=== PATIENT | male | born 1995 | race Caucasian/White ===

== ENCOUNTER → 2018-02-08 | Outpatient (CLI) | payer OTHER | END | disposition home or self-care (01) | LOC: CFH 14:43 | PROVIDERS: ATTEND Orthopaedic Surgery | DX: S83.281A Other tear of lateral meniscus, current injury, right knee, initial encounter (principal); S83.104A Unspecified dislocation of right knee, initial encounter; S80.01XA Contusion of right knee, initial encounter; M25.461 Effusion, right knee; X58.XXXA Exposure to other specified factors, initial encounter; Y93.89 Activity, other specified; Y92.89 Other specified places as the place of occurrence of the external cause; Y99.8 Other external cause status ==

== ENCOUNTER 2018-06-10 14:01 | Inpatient (IN) | payer OTHER ==
[~2018-06-10] VITALS: Ht 185.4 cm; Wt 110.1 kg
[2018-06-10 14:37] LABS: BASOPHILS # (AUTO) 0.02 x10^3/uL (0-0.1); BASOPHILS % (AUTO) 0 % (0-1); EOSINOPHILS # (AUTO) 0.04 x10^3/uL (0-0.4); EOSINOPHILS % (AUTO) 0 % (1-7); LYMPHOCYTES # (AUTO) 1.44 x10^3/uL (1-3.4); LYMPHOCYTES % (AUTO) 9 % (22-44); MD NO; MEAN CORPUSCULAR HGB CONC 34.3 g/dL (33.2-36.2); MEAN CORPUSCULAR VOLUME 87.6 fL (81-97); MEAN PLATELET VOLUME 7.9 fL (7.4-10.4); MONOCYTES # (AUTO) 1.44 x10^3/uL (0.2-0.8); MONOCYTES % (AUTO) 9 % (2-9); NEUTROPHILS # (AUTO) 13.82 x10^3/uL (1.8-6.8); NEUTROPHILS % (AUTO) 83 % (42-75); PLATELET COUNT 206 x10^3/uL (130-400); RED BLOOD COUNT 4.89 x10^6/uL (4.38-5.82); RED CELL DISTRIBUTION WIDTH 12.3 % (9.4-14.8)
--- NOTE | 2018-06-10 14:42 | NUR ---
PT ON HEART MONITOR, BP CUFF, PULSE OX. VSS/UPDATED IN COMPUTER. PT DENIES PAIN OR SOB AT THIS TIME. IV PLACED FOR CTA, 2ND BC DRAWN WITH START. LABS DRAWN AND BC X 1 BY STORE PRODUCT DEMONSTRATOR. CALL LIGHT WITHIN REACH.
[2018-06-10 14:47] LABS: ALBUMIN 4.2 g/dL (3.4-5.0); ANION GAP 7 mmol/L (5-15); CALCIUM 9.4 mg/dL (8.5-10.1); CHLORIDE 106 mmol/L (98-107); CREATININE 1.06 mg/dL (0.7-1.3)
[2018-06-10] MEDS ORDERED: SODIUM CHLORIDE FLUSH 10ML SYR IVF ONE (15:00)
[2018-06-10 15:20] LABS: INTERNATIONAL NORMALIZED RATIO 1.15 (0.93-1.1)
--- NOTE | 2018-06-10 15:35 | NUR ---
ALL LAB RESULTS BACK, PT AWAITING CTA.
[2018-06-10] MEDS ORDERED: CEFEPIME 2 GM in DEXTROSE 5% 100 ML IV ONE (16:00)
[2018-06-10] MEDS ORDERED: VANCOMYCIN PER PHARMACY MC ONE (16:00)
[2018-06-10] MEDS ORDERED: VANCOMYCIN 2,000 MG in SODIUM CHLORIDE 0.9% 500 ML IV ONE (16:00)
--- NOTE | 2018-06-10 16:18 | NUR ---
AFTER CONFIRMING PATIENT HAD BLOOD CULTURES DRAWN. MANAGER TRANSITION STARTED CEFEPIME 2GM WELL LITER BOLUS, VITAL UPDATED (REMAINS TACHYCARDIC & W/ TEMP OF 100. REPORTS HE HAD 1000MG OF TYLENOL AT 1230P. VANCOMYCIN AT BEDSIDE. LISA LR UPDATED
[2018-06-10] MEDS ORDERED: SODIUM CHLORIDE 0.9% 1,000ML IVBOLUS ONE (17:00)
--- NOTE | 2018-06-10 17:04 | NUR ---
REPORT TO LATRELL MORALES READY FOR TRANSPORT.
[2018-06-10 17:18] VITALS: BP 138/89
[2018-06-10] MEDS ORDERED: morphine SULFATE 10 MG/ML, 1ML IVPush PRN (18:30)
[2018-06-10] MEDS ORDERED: DOCUSATE 100 MG CAPSULE PO PRN (18:30)
[2018-06-10] MEDS ORDERED: HYDROcodone/APAP 5/325 TABLET PO PRN (18:30)
[2018-06-10] MEDS ORDERED: POLYETHYLENE GLYCOL 17 GM PACKET PO PRN (18:30)
[2018-06-10] MEDS ORDERED: hydrALAzine 20 MG/ML, 1ML IVPush PRN (18:30)
[2018-06-10] MEDS ORDERED: BISACODYL 10 MG SUPP PR PRN (18:30)
[2018-06-10] MEDS ORDERED: VANCOMYCIN PER PHARMACY MC PRN (18:30)
[2018-06-10] MEDS ORDERED: ONDANSETRON 2MG/ML, 2ML IVPush PRN (18:30)
[2018-06-10] MEDS ORDERED: PROMETHAZINE 25 MG/ML, 1ML IM PRN (18:30)
[2018-06-10] MEDS ORDERED: ONDANSETRON ODT 4 MG PO PRN (18:30)
[2018-06-10] MEDS: SODIUM CHLORIDE 0.9% 1,000 ML IV SCH (18:38)
[2018-06-10 19:17] LABS: FREE T4 (FREE THYROXINE) 1.2 ng/dL (0.76-1.46); THYROID STIMULATING HORMONE 1.06 mIU/L (0.358-3.740)
[2018-06-10 19:23] LABS: HEMOGLOBIN A1C 5.2 % (4.2-6.3)
[2018-06-10] MEDS ORDERED: PHARMACOKINETIC CONSULTATION MC ONE (20:00)
[2018-06-10] MEDS ORDERED: PHARMACOKINETIC MONITORING MC PRN (20:00)
[2018-06-10] MEDS: ENOXAPARIN 40 MG/0.4 ML SQ SCH (20:08)
[2018-06-10 20:17] VITALS: BP 122/55
[2018-06-10] MEDS: PIPERACILLIN/TAZO/PMX 3.375GM 50 ML IV SCH (21:23)
[2018-06-11 03:01] VITALS: BP 99/66
[2018-06-11] MEDS: PIPERACILLIN/TAZO/PMX 3.375GM 50 ML IV SCH ×4 (03:13→23:32)
[2018-06-11] MEDS: SODIUM CHLORIDE 0.9% 1,000 ML IV SCH (04:54)
[2018-06-11] MEDS ORDERED: VANCOMYCIN 2,000 MG in SODIUM CHLORIDE 0.9% 500 ML IV SCH (05:00)
[2018-06-11 06:47] LABS: CHOL/HDL RATIO 2.8; CHOLESTEROL, TOTAL 86 mg/dL (140-239); CREATININE 1.17 mg/dL (0.7-1.3); HDL CHOL % 36 % (26-37); HDL CHOLESTEROL (DIRECT) 31 mg/dL (40-60); LDL CHOLESTEROL,CALCULATED 43 mg/dL (54-169); LDL/HDL RATIO 1.4 (0.5-3.0); TRIGLYCERIDES 60 mg/dL (50-200); VLDL CHOLESTEROL 12 mg/dL (0-25)
[2018-06-11 06:50] LABS: BASOPHILS # (AUTO) 0.01 x10^3/uL (0-0.1); BASOPHILS % (AUTO) 0 % (0-1); EOSINOPHILS # (AUTO) 0.05 x10^3/uL (0-0.4); EOSINOPHILS % (AUTO) 1 % (1-7); LYMPHOCYTES # (AUTO) 1.38 x10^3/uL (1-3.4); LYMPHOCYTES % (AUTO) 12 % (22-44); MD NO; MEAN CORPUSCULAR HEMOGLOBIN 29.8 pg (27.5-34.5); MEAN CORPUSCULAR HGB CONC 34.1 g/dL (33.2-36.2); MEAN CORPUSCULAR VOLUME 87.5 fL (81-97); MONOCYTES % (AUTO) 12 % (2-9); NEUTROPHILS # (AUTO) 8.85 x10^3/uL (1.8-6.8); NEUTROPHILS % (AUTO) 76 % (42-75); PLATELET COUNT 194 x10^3/uL (130-400); RED BLOOD COUNT 4.49 x10^6/uL (4.38-5.82); RED CELL DISTRIBUTION WIDTH 12.7 % (9.4-14.8)
[2018-06-11 08:39] VITALS: BP 127/78
[2018-06-11] MEDS: ACETAMINOPHEN 325 MG TABLET PO PRN ×2 (09:08→20:15)
[2018-06-11] MEDS ORDERED: MAGNESIUM SULFATE PMX 2GM/50ML 50 ML IV ONE (11:00)
[2018-06-11 13:50] VITALS: BP 116/71
[2018-06-11] MEDS: ENOXAPARIN 40 MG/0.4 ML SQ SCH (18:39)
[2018-06-11] MEDS: VANCOMYCIN 2,000 MG in SODIUM CHLORIDE 0.9% 500 ML IV SCH (20:09)
[2018-06-11 20:25] VITALS: BP 136/83
[2018-06-12 01:03] VITALS: BP 110/70
[2018-06-12] MEDS: PIPERACILLIN/TAZO/PMX 3.375GM 50 ML IV SCH ×4 (05:11→22:57)
[2018-06-12 05:27] LABS: BASOPHILS # (AUTO) 0.03 x10^3/uL (0-0.1); BASOPHILS % (AUTO) 0 % (0-1); EOSINOPHILS # (AUTO) 0.08 x10^3/uL (0-0.4); EOSINOPHILS % (AUTO) 1 % (1-7); LYMPHOCYTES % (AUTO) 14 % (22-44); MD NO; MEAN CORPUSCULAR HEMOGLOBIN 29.7 pg (27.5-34.5); MEAN CORPUSCULAR HGB CONC 33.7 g/dL (33.2-36.2); MEAN CORPUSCULAR VOLUME 88.3 fL (81-97); MEAN PLATELET VOLUME 7.6 fL (7.4-10.4); MONOCYTES # (AUTO) 1.16 x10^3/uL (0.2-0.8); MONOCYTES % (AUTO) 11 % (2-9); NEUTROPHILS # (AUTO) 7.61 x10^3/uL (1.8-6.8); NEUTROPHILS % (AUTO) 74 % (42-75); PLATELET COUNT 217 x10^3/uL (130-400); RED BLOOD COUNT 4.78 x10^6/uL (4.38-5.82); RED CELL DISTRIBUTION WIDTH 12.9 % (9.4-14.8)
[2018-06-12 05:34] LABS: CHLORIDE 110 mmol/L (98-107)
[2018-06-12 05:41] LABS: ALANINE AMINOTRANSFERASE 19 U/L (12-78); ALBUMIN 3.5 g/dL (3.4-5.0); ALKALINE PHOSPHATASE 61 U/L (45-117); ANION GAP 6 mmol/L (5-15); BILIRUBIN,TOTAL 1.2 mg/dL (0.2-1.0); CALCIUM 9.1 mg/dL (8.5-10.1); TOTAL PROTEIN 7.2 g/dL (6.4-8.2); VANCOMYCIN,TROUGH 17.4 mcg/mL (5.0-10.0)
[2018-06-12 06:47] VITALS: BP 115/77
[2018-06-12] MEDS: VANCOMYCIN 2,000 MG in SODIUM CHLORIDE 0.9% 500 ML IV SCH (08:24)
[2018-06-12 14:08] LABS: MICROSCOPIC NOT IND
[2018-06-12 14:09] VITALS: BP 118/79
[2018-06-12 14:21] LABS: AMPHETAMINE SCREEN, URINE Negative (Negative); BARBITURATE SCREEN, URINE Negative (Negative); BENZODIAZEPINE SCREEN, URINE Negative (Negative); CANNABINOID SCREEN, URINE Negative (Negative); COCAINE SCREEN, URINE Negative (Negative); METHADONE SCREEN, URINE Negative (Negative); OPIATE SCREEN, URINE Negative (Negative)
[2018-06-12 14:30] VITALS: BP 148/93
[2018-06-12] MEDS: ENOXAPARIN 40 MG/0.4 ML SQ SCH (18:44)
[2018-06-12 20:37] VITALS: BP 138/92
[2018-06-13 00:32] VITALS: BP 104/69
[2018-06-13] MEDS: PIPERACILLIN/TAZO/PMX 3.375GM 50 ML IV SCH ×4 (04:43→22:44)
[2018-06-13 07:22] LABS: ALANINE AMINOTRANSFERASE 23 U/L (12-78); ALBUMIN 3.8 g/dL (3.4-5.0); ANION GAP 6 mmol/L (5-15); CALCIUM 9.3 mg/dL (8.5-10.1); CHLORIDE 108 mmol/L (98-107); CREATININE 1.33 mg/dL (0.7-1.3)
[2018-06-13 07:24] LABS: BASOPHILS # (AUTO) 0.01 x10^3/uL (0-0.1); BASOPHILS % (AUTO) 0 % (0-1); EOSINOPHILS # (AUTO) 0.13 x10^3/uL (0-0.4); EOSINOPHILS % (AUTO) 2 % (1-7); LYMPHOCYTES # (AUTO) 1.67 x10^3/uL (1-3.4); LYMPHOCYTES % (AUTO) 19 % (22-44); MD NO; MEAN CORPUSCULAR HEMOGLOBIN 29.2 pg (27.5-34.5); MEAN CORPUSCULAR HGB CONC 33.6 g/dL (33.2-36.2); MEAN PLATELET VOLUME 7.7 fL (7.4-10.4); MONOCYTES # (AUTO) 0.84 x10^3/uL (0.2-0.8); MONOCYTES % (AUTO) 10 % (2-9); NEUTROPHILS # (AUTO) 6.01 x10^3/uL (1.8-6.8); NEUTROPHILS % (AUTO) 69 % (42-75); PLATELET COUNT 302 x10^3/uL (130-400); RED BLOOD COUNT 4.74 x10^6/uL (4.38-5.82); RED CELL DISTRIBUTION WIDTH 12.6 % (9.4-14.8)
[2018-06-13 07:28] LABS: ALKALINE PHOSPHATASE 55 U/L (45-117); BILIRUBIN,TOTAL 0.6 mg/dL (0.2-1.0); TOTAL PROTEIN 7.5 g/dL (6.4-8.2)
[2018-06-13 07:29] VITALS: BP 107/61
[2018-06-13 07:47] LABS: HCT (SEDRATE) 41.3 % (39.2-51.8)
[2018-06-13] MEDS: SODIUM CHLORIDE 0.9% 1,000 ML IV SCH ×2 (11:00→21:30)
[2018-06-13 16:27] VITALS: BP 134/82
[2018-06-13 19:14] VITALS: BP 128/78
[2018-06-14 00:33] VITALS: BP 121/72
[2018-06-14] MEDS: SODIUM CHLORIDE 0.9% 1,000 ML IV SCH ×3 (05:09→21:54)
[2018-06-14] MEDS: PIPERACILLIN/TAZO/PMX 3.375GM 50 ML IV SCH ×4 (05:09→23:16)
[2018-06-14 05:45] LABS: BASOPHILS # (AUTO) 0.04 x10^3/uL (0-0.1); BASOPHILS % (AUTO) 1 % (0-1); EOSINOPHILS # (AUTO) 0.14 x10^3/uL (0-0.4); EOSINOPHILS % (AUTO) 2 % (1-7); LYMPHOCYTES % (AUTO) 25 % (22-44); MD NO; MEAN CORPUSCULAR HEMOGLOBIN 29.6 pg (27.5-34.5); MEAN CORPUSCULAR HGB CONC 33.7 g/dL (33.2-36.2); MEAN CORPUSCULAR VOLUME 87.9 fL (81-97); MEAN PLATELET VOLUME 7.3 fL (7.4-10.4); MONOCYTES # (AUTO) 0.75 x10^3/uL (0.2-0.8); MONOCYTES % (AUTO) 11 % (2-9); NEUTROPHILS # (AUTO) 4.39 x10^3/uL (1.8-6.8); NEUTROPHILS % (AUTO) 62 % (42-75); PLATELET COUNT 283 x10^3/uL (130-400)
[2018-06-14 05:48] LABS: ALBUMIN 3.3 g/dL (3.4-5.0); ANION GAP 7 mmol/L (5-15); CHLORIDE 111 mmol/L (98-107)
[2018-06-14 05:51] LABS: ALANINE AMINOTRANSFERASE 32 U/L (12-78); ALKALINE PHOSPHATASE 50 U/L (45-117); BILIRUBIN,TOTAL 0.4 mg/dL (0.2-1.0); TOTAL PROTEIN 6.9 g/dL (6.4-8.2)
[2018-06-14] MEDS ORDERED: POTASSIUM CHLORIDE 20 MEQ TAB.ER.PRT PO ONE (06:30)
[2018-06-14 06:58] VITALS: BP 110/70
[2018-06-14 12:30] VITALS: BP 122/75
[2018-06-14 18:48] VITALS: BP 126/81
[2018-06-14] MEDS ORDERED: AMOXICILLIN/CLAV 875-125MG TABLET PO SCH (21:00)
[2018-06-15 03:58] VITALS: BP 105/61
[2018-06-15] MEDS: PIPERACILLIN/TAZO/PMX 3.375GM 50 ML IV SCH ×2 (05:38→11:30)
[2018-06-15] MEDS: SODIUM CHLORIDE 0.9% 1,000 ML IV SCH (05:39)
[2018-06-15 06:12] LABS: ANION GAP 8 mmol/L (5-15); CALCIUM 9.1 mg/dL (8.5-10.1); CHLORIDE 111 mmol/L (98-107); CREATININE 1.14 mg/dL (0.7-1.3)
[2018-06-15 06:35] VITALS: BP 109/67
[2018-06-15 14:23] VITALS: BP 124/67
[2018-06-15] MEDS ORDERED: LEVO750T26 PO (15:22)
[2018-06-15] MEDS ORDERED: L.AC1CAP6 PO (15:22)
[2018-06-15 16:05] LABS: ANA SCREEN POSITIVE (Negative)
[2018-06-15 16:07] LABS: ANA TITER MIXED; ANTI-NUCLEAR ANTIBODY PATTERN MIXED
[2018-06-16] MEDS ORDERED: LEVOFLOXACIN 750 MG TABLET PO SCH (09:00)
== END 2018-06-15 16:51 | disposition home or self-care (01) | DRG 871 ==
LOC: ED 15:45 → EDIP 15:52 → ED 16:03 → 4WST 17:09 → DCLOUNGE 06-15 16:41
PROVIDERS: ADMIT Internal Medicine; ATTEND Internal Medicine
DX: A41.9 Sepsis, unspecified organism (principal); N17.0 Acute kidney failure with tubular necrosis; J12.9 Viral pneumonia, unspecified; J15.1 Pneumonia due to Pseudomonas; I76 Septic arterial embolism; R04.2 Hemoptysis; R04.0 Epistaxis; Z82.49 Family history of ischemic heart disease and other diseases of the circulatory system; Z83.3 Family history of diabetes mellitus
CPT/HCPCS: 36415; 71275; 80048; 80053; 80061; 80202; 80307; 80356; 81003; 82040; 82565; 83036; 83520; 83605; 83735; 84145; 84439; 84443; 84520; 85025; 85610; 85651; 85730; 86038; 86039; 86140; 86256; 86331; 86480; 86602; 86606; 86609; 86632; 86635; 86671; 86698; 86738; 87040; 87070; 87077; 87186; 87205; 87385; 87633; 93005; 93306; 93970; 96374; 96375; 99285; G0378; J1650; J2543; J3370; G0480; J3475; J7030; J7040